=== PATIENT | male | born 1945 | race Caucasian/White ===

== ENCOUNTER 2017-09-29 04:35 | Emergency (ER) | payer MEDICARE, OTHER ==
[2017-09-29] MEDS ORDERED: Sodium Chloride 0.9% 10 ML Syringe FLUSH PRN (04:51)
[2017-09-29] MEDS ORDERED: Albuterol/Ipratropium 3.0-0.5 MG/3 ML Neb Soln NEB ONE (05:19)
[2017-09-29 05:44] LABS: CHLORIDE,CL 104 mmol/L (98-107); SODIUM,NA 143 mmol/L (136-145)
[2017-09-29] MEDS ORDERED: Iopamidol 755 Mg/ML 100 ML Bottle IVPUSH ONE (05:51)
[2017-09-29] MEDS ORDERED: Potassium Chloride 20 MEQ Tab.ER PO ONE (06:13)
--- NOTE | 2017-09-29 06:21 | EDM.PDOC ---
ED HPI GENERAL MEDICAL PROBLEM - General Chief Complaint: Respiratory Problem Stated Complaint: sob Time Seen by Provider: 09/29/17 05:18 Source of Information: Reports: Patient History Limitations: Reports: No Limitations - History of Present Illness INITIAL COMMENTS - FREE TEXT/NARRATIVE: Patient comes to ER with complaint of SOB that has been present for several days. Better when upright and has been sleeping in his recliner for the past few nights. Worsens with activity/laying flat. Denies cough. No chest pain. Recalls having several episodes of lower chest pain around rib margins on right approximately a month ago that were brief and he attributed these to pleurisy/URI. No medical attention sought at that time. Denies heart/cardiovascular history except for hypertension. Non-smoker. Feels a pressure sensation in his shoulders at times, not pain. Also numbness/ tingling feeling in lower arms/hands. He said this went away when placed on oxygen in the ER. Denies HEENT/GI/ changes. No fevers/chills. No recent illnesses or injuries. Says that overall he has an unremarkable past medical history. No CAD in family history. Left Shoulder Pain Score (Numeric/FACES): 3 - Related Data Allergies Allergy/AdvReac Type Severity Reaction Status Date / Time No Known Allergies Allergy Verified 09/29/17 04:37 Home Meds: Home Meds DULoxetine HCl [Duloxetine HCl] 30 mg PO BID 09/29/17 [History] Losartan/Hydrochlorothiazide [Losartan-HCTZ 100-25 MG] 1 tab PO DAILY 09/29/17 [ History] Pantoprazole Sodium 40 mg PO DAILY 09/29/17 [History] Potassium Chloride 20 meq PO DAILY 09/29/17 [History] Past Medical History HEENT History: Reports: Allergic Rhinitis Cardiovascular History: Reports: High Cholesterol, Hypertension, Other (See Below) (previous Dx of possible incomplete RBBB) Respiratory History: Reports: COPD (by CXR changes) Gastrointestinal History: Reports: GERD, Hiatal Hernia, Irritable Bowel Syndrome , PUD Genitourinary History: Reports: BPH, Other (See Below) (Erectile dysfunction) Musculoskeletal History: Reports: Osteoarthritis Social & Family History - Family History Family Medical History: Noncontributory (Patient denies history of cardiac disease in family. He does say that cancer runs in the family.) - Tobacco Use Smoking Status *Q: Never Smoker - Alcohol Use Alcohol Use History: No - Recreational Drug Use Recreational Drug Use: No Drug Use in Last 12 Months: No ED ROS GENERAL - Review of Systems Review Of Systems: See Below Constitutional: Reports: Fatigue. Denies: Fever, Chills, Diaphoresis, Weight Loss, Weight Gain HEENT: Reports: No Symptoms Respiratory: Reports: Shortness of Breath, Wheezing. Denies: Pleuritic Chest Pain, Cough, Sputum, Hemoptysis Cardiovascular: Reports: Dyspnea on Exertion. Denies: Chest Pain, Edema, Lightheadedness, Palpitations, Syncope GI/Abdominal: Reports: No Symptoms : Reports: No Symptoms Musculoskeletal: Reports: Other (tightness sensation left shoulder as well as both hands/wrists. Says that it is not actually painful. ) Skin: Reports: No Symptoms Neurological: Reports: Paresthesia (bilateral wrists/hands). Denies: Confusion , Dizziness, Headache, Trouble Speaking, Change in Speech, Gait Disturbance Psychiatric: Reports: No Symptoms ED EXAM, GENERAL - Physical Exam Exam: See Below Exam Limited By: No Limitations General Appearance: Alert, WD/WN, No Apparent Distress, Obese Eye Exam: Bilateral Eye: EOMI, PERRL Ears: Normal External Exam, Normal Canal Nose: Normal Inspection Throat/Mouth: Normal Inspection, Normal Lips, Normal Voice, No Airway Compromise Head: Atraumatic, Normocephalic Neck: Normal Inspection, Supple, Non-Tender, Full Range of Motion. No: Lymphadenopathy (L), Lymphadenopathy (R) Respiratory/Chest: No Respiratory Distress, No Accessory Muscle Use, Chest Non- Tender, Decreased Breath Sounds (bilaterally lower lungs), Crackles (noted bilaterally, lower half lungs, faint). No: Rales, Wheezing, Stridor, Accessory Muscle Use, Retractions Cardiovascular: Normal Peripheral Pulses, Regular Rate, Rhythm, No Edema, No Murmur Peripheral Pulses: 2+: Radial (L), Radial (R), Dorsalis Pedis (L), Dorsalis Pedis (R) GI/Abdominal: Normal Bowel Sounds, Soft, Non-Tender, Other (obese, very rounded) . No: Guarding, Rigid, Rebound, Tender (Male) Exam: Deferred Rectal (Males) Exam: Deferred Back Exam: Normal Inspection Extremities: Normal Range of Motion, Non-Tender, No Pedal Edema, Other (bluish tint to nail beds noted) Neurological: Alert, Oriented, Normal Cognition, No Motor/Sensory Deficits Psychiatric: Normal Affect, Normal Mood Skin Exam: Warm, Dry, Intact EKG INTERPRETATION EKG Date: 09/29/17 Time: 05:11 Rhythm: Other (Sinus rhythm) Rate (Beats/Min): 86 [place]: Normal P-Wave: Present QRS: LBBB QT: Normal Comparison: Change From Previous EKG EKG Interpretation Comments: LBBB noted. No recent EKGs available to compare until 2008. LBBB not present at that time. 1st degree AV block present. Intermittent PACs noted on monitor and on EKG. Course - Vital Signs Last Recorded V/S: Last Vital Signs Temp 36.6 C 09/29/17 07:10 Pulse 90 09/29/17 07:25 Resp 22 H 09/29/17 07:25 BP 133/92 H 09/29/17 07:10 Pulse Ox 95 09/29/17 07:25 - Orders/Labs/Meds Orders: Active Orders 24 hr Category Date Time Status EKG Documentation Completion [RC] ASDIRECTED Care 09/29/17 04:49 Active RT Aerosol Therapy [RC] ASDIRECTED Care 09/29/17 05:20 Active CXR [Chest 2V] [CR] Stat Exams 09/29/17 04:48 Taken PE Chest [Ang Chest] [CT] Stat Exams 09/29/17 05:47 Taken Obtain Past Medical Record [OM.PC] Routine Oth 09/29/17 06:11 Active Saline Lock Insert [OM.PC] Routine Oth 09/29/17 04:51 Ordered Labs: Laboratory Tests 09/29/17 09/29/17 09/29/17 Range/Units 04:49 05:13 05:13 WBC 8.7 (4.0-10.2) K/uL RBC 4.33 (4.33-5.41) M/uL Hgb 14.7 (13.1-16.8) g/dL Hct 43.6 (39.0-49.0) % MCV 100.7 H (84.0-98.0) fL MCH 33.9 H (28.2-33.3) pg MCHC 33.7 (31.7-36.0) g/dL RDW 13.5 (11.2-14.1) % Plt Count 258 (150-350) K/uL Neut % (Auto) 76.2 (45.0-80.0) % Lymph % (Auto) 14.0 (10.0-50.0) % [place] % (Auto) 8.2 (2.0-14.0) % Eos % (Auto) 1.4 (0.0-5.0) % Baso % (Auto) 0.2 (0.0-2.0) % Neut # (Auto) 6.63 (1.40-7.00) K/uL Lymph # (Auto) 1.22 (0.50-3.50) K/uL [place] # (Auto) 0.71 (0.00-1.00) K/uL Eos # (Auto) 0.12 (0.00-0.50) K/uL Baso # (Auto) 0.02 (0.00-0.20) K/uL D-Dimer, Quantitative 530 H (0-400) ng/mL Sodium (136-145) mmol/L Potassium (3.5-5.1) mmol/L Chloride (98-107) mmol/L Carbon Dioxide (21.0-32.0) mmol/L BUN (7-18) mg/dL Creatinine (0.51-1.17) mg/dL Est Cr Clr Drug Dosing mL/min Estimated GFR (MDRD) mL/min Glucose (74-106) mg/dL Calcium (8.5-10.1) mg/dL Total Bilirubin (0.2-1.0) mg/dL AST (15-37) U/L ALT (12-78) U/L Alkaline Phosphatase (46-116) IU/L Creatine Kinase Index (0.0-2.5) % CK-MB (CK-2) (0.00-3.60) ng/mL Troponin I (0.000-0.056) ng/mL NT-Pro-B Natriuret Pep (0-125) pg/mL Total Protein (6.4-8.2) g/dL Albumin (3.4-5.0) g/dL Specimen Type Urincc Urine Color [place] Urine Appearance Clear Urine pH 5.5 (5.0-9.0) Ur Specific [place] 1.010 (1.005-1.030) Urine Protein 30 H (NEGATIVE) mg/dL Urine Glucose (UA) Negative (NEGATIVE) mg/dL Urine Ketones Negative (NEGATIVE) mg/dL Urine Occult Blood Trace-intact H (NEGATIVE) Urine Nitrite Negative (NEGATIVE) Urine Bilirubin Negative (NEGATIVE) Urine Urobilinogen 0.2 (0.2-1.0) E.U./dL Ur Leukocyte Esterase Negative (NEGATIVE) Urine RBC 0-5 /HPF Urine WBC 0-5 /HPF Ur Epithelial Cells Occasional /LPF Urine Bacteria Occasional (NONE TO FEW) /HPF 09/29/17 Range/Units 05:13 WBC (4.0-10.2) K/uL RBC (4.33-5.41) M/uL Hgb (13.1-16.8) g/dL Hct (39.0-49.0) % MCV (84.0-98.0) fL MCH (28.2-33.3) pg MCHC (31.7-36.0) g/dL RDW (11.2-14.1) % Plt Count (150-350) K/uL Neut % (Auto) (45.0-80.0) % Lymph % (Auto) (10.0-50.0) % [place] % (Auto) (2.0-14.0) % Eos % (Auto) (0.0-5.0) % Baso % (Auto) (0.0-2.0) % Neut # (Auto) (1.40-7.00) K/uL Lymph # (Auto) (0.50-3.50) K/uL [place] # (Auto) (0.00-1.00) K/uL Eos # (Auto) (0.00-0.50) K/uL Baso # (Auto) (0.00-0.20) K/uL D-Dimer, Quantitative (0-400) ng/mL Sodium 143 (136-145) mmol/L Potassium 3.3 L (3.5-5.1) mmol/L Chloride 104 (98-107) mmol/L Carbon Dioxide 25.7 (21.0-32.0) mmol/L BUN 29 H (7-18) mg/dL Creatinine 0.92 (0.51-1.17) mg/dL Est Cr Clr Drug Dosing 72.74 mL/min Estimated GFR (MDRD) > 60 mL/min Glucose 141 H (74-106) mg/dL Calcium 9.4 (8.5-10.1) mg/dL Total Bilirubin 0.9 (0.2-1.0) mg/dL AST 17 (15-37) U/L ALT 39 (12-78) U/L Alkaline Phosphatase 62 (46-116) IU/L Creatine Kinase Index 2.0 (0.0-2.5) % CK-MB (CK-2) 3.00 (0.00-3.60) ng/mL Troponin I 0.081 H* (0.000-0.056) ng/mL NT-Pro-B Natriuret Pep 1433 H (0-125) pg/mL Total Protein 7.5 (6.4-8.2) g/dL Albumin 3.4 (3.4-5.0) g/dL Specimen Type Urine Color Urine Appearance Urine pH (5.0-9.0) Ur Specific [place] (1.005-1.030) Urine Protein (NEGATIVE) mg/dL Urine Glucose (UA) (NEGATIVE) mg/dL Urine Ketones (NEGATIVE) mg/dL Urine Occult Blood (NEGATIVE) Urine Nitrite (NEGATIVE) Urine Bilirubin (NEGATIVE) Urine Urobilinogen (0.2-1.0) E.U./dL Ur Leukocyte Esterase (NEGATIVE) Urine RBC /HPF Urine WBC /HPF Ur Epithelial Cells /LPF Urine Bacteria (NONE TO FEW) /HPF Meds: Medications Discontinued Medications Generic Name Dose Route Start Last Admin Trade Name Freq PRN Reason Stop Dose Admin Albuterol/Ipratropium 3 ml 09/29/17 05:19 09/29/17 05:31 Duoneb 3.0-0.5 Mg/3 Ml NEB 09/29/17 05:20 3 ml ONETIME ONE Administration Aspirin Confirm 09/29/17 07:33 09/29/17 08:30 Aspirin Administered 09/29/17 07:34 Not Given Dose 324 mg .ROUTE .STK-MED ONE Aspirin 324 mg 09/29/17 07:50 09/29/17 07:34 Aspirin PO 09/29/17 07:51 324 mg ONETIME ONE Administration Furosemide 40 mg 09/29/17 06:45 09/29/17 07:04 Lasix IVPUSH 09/29/17 06:46 Not Given NOW ONE Heparin Sodium (Porcine) Confirm 09/29/17 07:33 09/29/17 08:29 Heparin Sodium Administered 09/29/17 07:34 Not Given Dose 5,000 units .ROUTE .STK-MED ONE Heparin Sodium (Porcine) 4,000 units 09/29/17 07:52 09/29/17 07:34 Heparin Sodium IVPUSH 09/29/17 07:53 4,000 units ONETIME ONE Administration Iopamidol 100 ml 09/29/17 05:51 09/29/17 06:42 Isovue-370 (76%) IVPUSH 09/29/17 05:52 100 ml ONETIME ONE Administration Nitroglycerin 0.4 mg 09/29/17 06:34 09/29/17 06:58 Nitrostat SL 09/29/17 06:35 0.4 mg ONETIME ONE Administration Potassium Chloride 40 meq 09/29/17 06:13 09/29/17 06:58 Klor-Con M20 PO 09/29/17 06:14 40 meq ONETIME ONE Administration Sodium Chloride 10 ml 09/29/17 04:51 Saline Flush FLUSH ASDIRECTED PRN Keep Vein Open Ticagrelor Confirm 09/29/17 07:33 09/29/17 08:29 Brilinta Administered 09/29/17 07:34 Not Given Dose 180 mg PO .STK-MED ONE Ticagrelor 180 mg 09/29/17 07:53 09/29/17 07:34 Brilinta PO 09/29/17 07:54 180 mg ONETIME ONE Administration - Radiology Interpretation Free Text/Narrative:: Chest film showed cardiomegaly as well as CHF Comparison film from [address] performed to rule out PE ultimately did not show PE present. Small right pleural effusion/CHF suggested as well as enlarged right hilar lymph nodes. Radiology did not call us with STAT results as per usual protocol. Report faxed to us at 7:20AM - Re-Assessments/Exams Free Text/Narrative Re-Assessment/Exam: Patient felt overall improved once on oxygen. Tightness in shoulder as well as hand sensation and SOB improved. No change noted later when given one nitro SL. Labs performed. When LBBB noted on EKG patient told us that he always had an unusual finding on his EKG but he could not remember what it was. Could not recall if it was LBBB. No EKG in computer for comparison. CKMB normal. Troponin mildly elevated at 0.081 Glu 141 K 3.3 DDimer elevated at 530 ProBNP elevated at 1433 Given the described right lower chest pain that patient had described from earlier this month, along with the persistent SOB that had been bothering him for days, the possibility of PE was considered high and CT scan of chest ordered. Once patient had completed scan, contact was made with [place]. Patient had previous lumbar fusion performed there and it was hoped that they might have a more recent EKG on file. A request to send our EKG and have Cardiology review it and compare it to any more recent EKG that they might have on file was made. EKG faxed. We were subsequently contacted by , complex commercial litigation paralegal for Cardiology. He too wondered if this was a new LBBB. Work up status and labs results were discussed. suspected based of of patient's negative CKMB and mildly + Troponin that patient likely had already had an infarct days before or even within the last month (possibly related to previous pain he had approx one month ago) and was not a candidate for anti-platelet therapy at this time. He also felt that the above complaints could also be related to pulmonary embolism as part of the differential diagnosis. It was decided to start transfer process of patient to [place] while still waiting for CT results, with plan of patient going to senior cyt[facility] laboratory director if CT results were negative for PE. Patient continued to rest comfortably at this time. In this patient's case, Radiology did not contact us personally by phone to relay official reading. Instead, a dictated result was faxed around 7:20am. Call placed to [place] concerning official results which showed no PE. at that time instructed us to go ahead and give cardiac loading dose of Heparin, PO Brillinta. Patient also received aspirin in addition to other medications. He was transported to [place] by air for further care. 09/29/17 11:14 Patient originally denied having any significant past medical history except for hypertension. Review of paper chart on file showed otherwise, and past medical history updated to match problem list found. Departure - Departure Time of Disposition: 07:45 Disposition: DC/Tfer to Acute Hospital 02 Condition: Fair Clinical Impression: New onset left bundle branch block (LBBB), SOB (shortness of breath), Elevated troponin CHF (congestive heart failure) Qualifiers: Heart failure type: unspecified Heart failure chronicity: acute Qualified Code( s): I50.9 - Heart failure, unspecified - Discharge Information Referrals: Montez Mcneill PA [Primary Care Provider] - Forms: ED Department Discharge - My Orders Last 24 Hours: My Active Orders 09/29/17 04:48 CXR [Chest 2V] [CR] Stat 09/29/17 04:49 EKG Documentation Completion [RC] ASDIRECTED 09/29/17 04:51 Saline Lock Insert [OM.PC] Routine 09/29/17 05:20 RT Aerosol Therapy [RC] ASDIRECTED 09/29/17 05:47 PE Chest [Ang Chest] [CT] Stat 09/29/17 06:11 Obtain Past Medical Record [OM.PC] Routine - Assessment/Plan Last 24 Hours: My Active Orders 09/29/17 04:48 CXR [Chest 2V] [CR] Stat 09/29/17 04:49 EKG Documentation Completion [RC] ASDIRECTED 09/29/17 04:51 Saline Lock Insert [OM.PC] Routine 09/29/17 05:20 RT Aerosol Therapy [RC] ASDIRECTED 09/29/17 05:47 PE Chest [Ang Chest] [CT] Stat 09/29/17 06:11 Obtain Past Medical Record [OM.PC] Routine
[2017-09-29] MEDS ORDERED: Nitroglycerin 0.4 MG Tab.SL SL ONE (06:34)
[2017-09-29] MEDS: Furosemide 40 MG/4 ML VIAL IVPUSH ONE ×2 (06:59→07:04)
[2017-09-29] MEDS ORDERED: Aspirin 81 MG Tab.Chew ONE (07:33)
[2017-09-29] MEDS ORDERED: Heparin Sodium 5,000 Units/ML Vial ONE (07:33)
[2017-09-29] MEDS ORDERED: Ticagrelor 90 MG Tab PO ONE ×2 (07:33→07:53)
[2017-09-29] MEDS ORDERED: Aspirin 81 MG Tab.Chew PO ONE (07:50)
[2017-09-29] MEDS ORDERED: Heparin Sodium 5,000 Units/ML Vial IVPUSH ONE (07:52)
== END 2017-09-29 07:36 ==
LOC: LL.ED 04:35
DX: I11.0 Hypertensive heart disease with heart failure (principal); I50.9 Heart failure, unspecified; I44.7 Left bundle-branch block, unspecified; E78.00 Pure hypercholesterolemia, unspecified; R79.89 Other specified abnormal findings of blood chemistry
CPT/HCPCS: 36415; 71046; 71275; 80053; 81001; 82553; 83880; 84484; 85025; 85379; 93005; 96374; 99285; A9270; J1644; Q9967; 93010; 94640; J1940